=== PATIENT | male | born 1975 | race Caucasian/White ===

== ENCOUNTER 2017-10-01 09:40 | Emergency (ER) | payer OTHER ==
[~2017-10-01] VITALS: Ht 182.9 cm; Wt 176.9 kg
[2017-10-01] MEDS ORDERED: BENICAR HCT 401 EAC1 (09:50)
== END 2017-10-01 11:31 | disposition home or self-care (01) ==
LOC: ER 09:40
DX: K61.2 Anorectal abscess (principal)

== ENCOUNTER 2024-06-26 06:00 | Inpatient (IN) | payer OTHER ==
[~2024-06-26] VITALS: Ht 182.9 cm; Wt 259.9 kg
[~2024-06-26 06:00] MED LIST: ADULT LOW DOSE81 M1; BENICAR HCT 401 EAC1; DILTIAZEM ER240 M3; MOUNJARO5 MG/0.5 M
[2024-06-26] MEDS ORDERED: CEFAZOLIN SODIUM 1,000 MG VIAL IV SCH (10:00)
[2024-06-26] MEDS ORDERED: EPINEPHRINE HCL/PF 1 MG/ML AMPUL IR SCH (10:00)
[2024-06-26] MEDS ORDERED: LIDOCAINE HCL 1% 10ML VIAL IJ SCH (10:00)
[2024-06-26] MEDS ORDERED: ENOXAPARIN SODIUM 60 MG/0.6 ML SYRINGE SUBCUTANEO SCH (10:15)
[2024-06-26] MEDS ORDERED: POVIDONE-IODINE 118 ML BOTT TOP SCH (12:45)
[2024-06-26] MEDS ORDERED: MORPHINE SULFATE 4 MG/ML VIAL IV PRN (20:15)
[2024-06-26] MEDS ORDERED: OxyCODONE HCL/APAP UD (PERCOCET) PO PRN (20:15)
[2024-06-26] MEDS ORDERED: ONDANSETRON HCL 2 MG/ML VIAL IV PRN (20:15)
[2024-06-26] MEDS ORDERED: RINGERS SOLUTION,LACTATED 1,000 ML IV SCH (20:15)
[2024-06-26] MEDS ORDERED: CLINDAMYCIN PHOSPHATE 150 MG/ML (900mg) IV SCH (20:18)
[2024-06-26] MEDS ORDERED: ENALAPRILAT DIHYDRATE 2.5 MG/2 ML VIAL IV PRN (20:30)
[2024-06-27] MEDS ORDERED: MORPHINE SULFATE 4 MG/ML VIAL IV ONE (02:20)
[2024-06-27 03:30] VITALS: BP 114/73; O2SAT 95
[2024-06-27 06:42] LABS: HEMATOCRIT 42.5 % (39.0-48.0); MEAN CELL VOLUME 91.9 fL (80.0-100.00); MEAN CORPUSCULAR HEMOGLOBIN 32.5 pg (27.00-32.0); MEAN CORPUSCULAR HGB CONC 35.4 g/dl (32.0-36.0); PLATELET COUNT 194 K/uL (150-450); RED BLOOD COUNT 4.63 M/uL (4.00-6.00); RED CELL DISTRIBUTION WIDTH 14.3 % (11.5-14.5)
[2024-06-27 08:00] VITALS: BP 135/73; O2SAT 98
[2024-06-27] MEDS ORDERED: ENOXAPARIN SODIUM 60 MG/0.6 ML SYRINGE SUBCUTANEO STA (08:47)
[2024-06-27] MEDS ORDERED: SUGAMMADEX SODIUM 200 MG/2 ML VIAL IV ONE (11:15)
[2024-06-27 16:15] VITALS: BP 122/66; O2SAT 99
[2024-06-28 00:54] VITALS: BP 143/83; O2SAT 100
[2024-06-28] MEDS ORDERED: ENOXAPARIN SODIUM 60 MG/0.6 ML SYRINGE SUBCUTANEO STA (11:12)
== END 2024-06-28 12:24 | disposition home or self-care (01) | DRG 621 ==
LOC: CIR.AMB 06:00 → SURH 22:21 → MEDJ 06-27 01:24 → SURH 06-27 01:37
PROVIDERS: ADMIT Specialist; ATTEND Specialist
PROC: 0J060ZZ Alteration of Chest Subcutaneous Tissue and Fascia, Open Approach (ICD-10-PCS; 2024-06-26)
PROC: 0W0F0ZZ Alteration of Abdominal Wall, Open Approach (ICD-10-PCS; 2024-06-26)
PROC: 0J083ZZ Alteration of Abdomen Subcutaneous Tissue and Fascia, Percutaneous Approach (ICD-10-PCS; 2024-06-26)
PROC: 0J070ZZ Alteration of Back Subcutaneous Tissue and Fascia, Open Approach (ICD-10-PCS; principal; 2024-06-26 07:00)
DX: E65 Localized adiposity (principal)